=== PATIENT | female | born 1985 | race Caucasian/White ===

== ENCOUNTER 2020-06-12 19:13 | Emergency (ER) | payer MEDICAID ==
[~2020-06-12] VITALS: Ht 162.6 cm; Wt 180.0 kg
[2020-06-12] MEDS ORDERED: KETOROLAC 30MG/ML VIAL IV STA (19:37)
[2020-06-12] MEDS ORDERED: ONDANSETRON HCL 4MG/2ML INJ IV STA (19:37)
[2020-06-12] MEDS ORDERED: SODIUM CHLORIDE 0.9% 1,000 ML IV ONE (19:45)
[2020-06-12 20:23] LABS: BASOPHILS % 0.6 % (0.0-2.0); EOSINOPHILS % 1.5 % (0.0-5.0); HEMATOCRIT. 39.6 % (36.0-48.0); HEMOGLOBIN. 12.8 g/dL (12.0-16.0); MEAN CORPUSCULAR HEMOGLOBIN 24.9 pg (28.0-32.0); MEAN CORPUSCULAR VOLUME 77.1 fL (81.0-99.0); MEAN PLATELET VOLUME 8.8 fl (7.4-10.4); MONOCYTES % 4.3 % (2.0-8.0); NEUTROPHILS % 68.6 % (40.0-76.0); PLATELET 241 x1000/uL (130-400); RED BLOOD CELL COUNT 5.13 mill/uL (4.2-5.4); RED CELL DISTRIBUTION WIDTH 17.5 % (11.6-14.6)
[2020-06-12 20:36] LABS: CHLORIDE 102 mEq/L (98-107)
[2020-06-12 20:38] LABS: HCG SCREEN NEGATIVE
[2020-06-12 20:39] LABS: CLARITY URINE CLEAR (CLEAR); COLOR URINE YELLOW (YELLOW); KETONES URINE NEGATIVE (NEGATIVE); LEUKOCYTE ESTERASE URINE NEGATIVE (NEGATIVE); NITRITE URINE NEGATIVE (NEGATIVE); OCCULT BLOOD URINE NEGATIVE (NEGATIVE); PROTEIN URINE NEGATIVE (NEGATIVE); SPECIFIC GRAVITY URINE 1.027 (1.005-1.030)
[2020-06-12] MEDS ORDERED: ONDANSETRON HCL 4MG/2ML INJ IV ONE (21:30)
[2020-06-12] MEDS ORDERED: MORPHINE SULFATE 4 MG/ML CPJ (NOT FOR IM USE) IV ONE (21:30)
[2020-06-12] MEDS ORDERED: FAMOTIDINE 20MG TABLET PO ONE (22:45)
[2020-06-12 22:57] VITALS: BP 169/79
== END 2020-06-12 22:59 | disposition home or self-care (01) ==
LOC: ER 19:13
DX: K57.92 Diverticulitis of intestine, part unspecified, without perforation or abscess without bleeding (principal); R11.0 Nausea
CPT/HCPCS: 36415; 74176; 80053; 81003; 83690; 84703; 85025; 93005; 96361; 96374; 96375; 96376; 99285; J1885; J2270; J2405; J7030

== ENCOUNTER 2020-08-28 22:04 | Emergency (ER) | payer MEDICAID ==
[~2020-08-28] VITALS: Ht 162.6 cm; Wt 165.0 kg
[2020-08-28 22:49] VITALS: BP 152/85
[2020-08-28 23:47] LABS: CLARITY URINE CLOUDY (CLEAR); COLOR URINE YELLOW (YELLOW); KETONES URINE TRACE (NEGATIVE); LEUKOCYTE ESTERASE URINE TRACE (NEGATIVE); NITRITE URINE NEGATIVE (NEGATIVE); OCCULT BLOOD URINE 2+ (NEGATIVE); PH URINE 5.5 (4.5-8.0); PROTEIN URINE NEGATIVE (NEGATIVE); SPECIFIC GRAVITY URINE 1.032 (1.005-1.030); UROBILINOGEN URINE 0.2 E.U./dL (0.2-1.0)
== END 2020-08-28 23:30 | disposition left against medical advice (07) ==
LOC: ER 22:04
DX: Z53.21 Procedure and treatment not carried out due to patient leaving prior to being seen by health care provider (principal); I49.9 Cardiac arrhythmia, unspecified
CPT/HCPCS: 81003; 93005

== ENCOUNTER 2021-12-19 14:12 | Emergency (ER) | payer MEDICAID ==
[~2021-12-19] VITALS: Ht 162.6 cm; Wt 174.0 kg
[~2021-12-19 14:12] MED LIST: ACET-3163 MT; AMOX-424 MT; DOCU-138 MT; POLY119P2 MT
[2021-12-19] MEDS ORDERED: KETOROLAC 15MG/ML VIAL IV ONE (14:45)
[2021-12-19 14:54] LABS: BASOPHILS % 0.6 % (0.0-2.0); EOSINOPHILS % 0.5 % (0.0-5.0); HEMATOCRIT. 41.6 % (36.0-48.0); HEMOGLOBIN. 13.6 g/dL (12.0-16.0); LYMPHOCYTES % 18.8 % (20.0-50.0); MEAN CORPUSCULAR HEMOGLOBIN 25.1 pg (28.0-32.0); MEAN CORPUSCULAR VOLUME 76.5 fL (81.0-99.0); MEAN PLATELET VOLUME 9.2 fl (7.4-10.4); MONOCYTES % 5.8 % (2.0-8.0); NEUTROPHILS % 74.3 % (40.0-76.0); PLATELET 224 x1000/uL (130-400); RED BLOOD CELL COUNT 5.43 mill/uL (4.2-5.4); RED CELL DISTRIBUTION WIDTH 20.5 % (11.6-14.6)
[2021-12-19 14:57] LABS: CHLORIDE 97 mEq/L (98-107)
[2021-12-19] MEDS ORDERED: METOCLOPRAMIDE HCL 10MG/2ML VIAL IV ONE (15:30)
[2021-12-19] MEDS ORDERED: POTASSIUM CHLORIDE 20MEQ TABLET SR PO ONE (17:30)
[2021-12-19 18:00] VITALS: BP 108/69
== END 2021-12-19 19:00 | disposition home or self-care (01) ==
LOC: ER 14:18
DX: R07.89 Other chest pain (principal); R05.9 Cough, unspecified; Z98.890 Other specified postprocedural states; Z20.822 Contact with and (suspected) exposure to COVID-19; Z79.899 Other long term (current) drug therapy
CPT/HCPCS: 36415; 71045; 80053; 83880; 84484; 85025; 87426; 93005; 96374; 96375; 99285; C9803; J1885; J2765